=== PATIENT | male | born 1950 | race Caucasian/White ===

== ENCOUNTER 2017-02-18 08:00 | Outpatient (CLI) | payer MEDICARE, BC | END 2017-02-18 08:01 | disposition home or self-care (01) | LOC: BICULT 08:00 | PROVIDERS: ATTEND Urology | DX: N40.0 Benign prostatic hyperplasia without lower urinary tract symptoms (principal); N28.1 Cyst of kidney, acquired; R31.29 Other microscopic hematuria | CPT/HCPCS: 76770; 88112 ==